=== PATIENT | female | born 1975 | race Caucasian/White ===

== ENCOUNTER 2023-07-28 10:44 | Observation (INO) | payer BC ==
[2023-07-28] MEDS ORDERED: SODIUM CHLORIDE 0.9% 500 ML 500 ML IV ONE (11:45)
--- NOTE | 2023-07-28 11:49 | ED ---
General Adult HPI - General Chief complaint: Psychiatric Symptoms Stated complaint: Mental Health Time Seen by Provider: 07/28/23 11:15 Source: patient, RN notes reviewed, old records reviewed Mode of arrival: ambulatory Limitations: no limitations - History of Present Illness Initial comments: This is a 48-year-old female who is coming to the emergency department with family who has been it to other emergency departments in this is the fourth visit to an emergency department. Patient a week ago came back from a wedding and was acting bizarre having some forgetful memory having very tangential thinking stating that her 's birthdate is the next day but his is not May. Patient is obsessed with the lenard on her right leg and thinks that that Odell coming from the bones of her body. Patient does not understand why she is here but family is concerned because stroke workup was done and was negative but she continues to be completely different than her baseline. When I asked the patient why she is here she starts talking about events that happened to her 2 years ago and refuses to get off that line of thought - Related Data Home Medications Medication Instructions Recorded Confirmed LORazepam [Ativan] 0.5 mg PO BID PRN 07/28/23 07/28/23 Sulfamethox-Tmp 800-160Mg [Bactrim 1 tab PO Q12HR 07/28/23 07/28/23 DS 800-160 mg] Allergies Allergy/AdvReac Type Severity Reaction Status Date / Time azithromycin Allergy Unknown Verified 07/28/23 14:17 Iodinated Contrast Media Allergy Unknown Verified 07/28/23 14:17 Penicillins Allergy Unknown Verified 07/28/23 14:17 Review of Systems ROS Statement: Those systems with pertinent positive or pertinent negative responses have been documented in the HPI. ROS Other: All systems not noted in ROS Statement are negative. Past Medical History Additional Past Medical History / Comment(s): multinodular goiter History of Any Multi-Drug Resistant Organisms: None Reported Past Surgical History: Cholecystectomy Additional Past Surgical History / Comment(s): D&C 2014 Past Psychological History: No Psychological Hx Reported Smoking Status: Never smoker Past Alcohol Use History: Rare Past Drug Use History: Marijuana General Exam - General Exam Comments Initial Comments: GENERAL: Patient is well-developed and well-nourished. Patient is nontoxic and well- hydrated and is in no acute distress. ENT: Neck is soft and supple. No significant lymphadenopathy is noted. Oropharynx is clear. Moist mucous membranes. Neck has full range of motion without eliciting any pain. EYES: The sclera were anicteric and conjunctiva were pink and moist. Extraocular movements were intact and pupils were equal round and reactive to light. Eyelids were unremarkable. PULMONARY: Unlabored respirations. Good breath sounds bilaterally. No audible rales rhonchi or wheezing was noted. CARDIOVASCULAR: There is a regular rate and rhythm without any murmurs gallops or rubs. ABDOMEN: Soft and nontender with normal bowel sounds. SKIN: Skin is clear with no lesions or rashes and otherwise unremarkable. NEUROLOGIC: Patient is alert and oriented x3. Cranial nerves II through XII are grossly intact. Motor and sensory are also intact. Normal speech, volume and content. Symmetrical smile. MUSCULOSKELETAL: Normal extremities with adequate strength and full range of motion. LYMPHATICS: No significant lymphadenopathy is noted PSYCHIATRIC: Patient is very tangential thinking and is not making much sense relative to why she is here. Patient is somewhat obsessed with her falling off a ladder 2 years ago as well as obsessed with a red lenard about the size of an eraser on her right leg. Limitations: no limitations Course Vital Signs 07/28/23 11:01 Temperature 98.1 F Pulse Rate 92 Respiratory 16 Rate Blood Pressure 159/99 O2 Sat by Pulse 98 Oximetry Medical Decision Making - Medical Decision Making EKG was interpreted by myself. EKG shows a sinus rhythm at 91 bpm CO interval 157 QRSs 84 QT interval 337 QTC is 385 per patient's EKG shows no ST segment patient depression. Was pt. sent in by a medical professional or institution (, PA, [employer], urgent care, hospital, or [facility]...) When possible be specific @ -No Did you speak to anyone other than the patient for history (EMS, parent, family, police, friend...)? What history was obtained from this source @ - and daughter give most of the history Did you review nursing and triage notes (agree or disagree)? Why? @ -I reviewed and agree with nursing and triage notes Were old charts reviewed (outside hosp., previous admission, EMS record, old EKG, old radiological studies, urgent care reports/EKG's, [facility] records)? Report findings @ -I reviewed prior CAT scan results in charge from [facility] and [facility] Differential Diagnosis (chest pain, altered mental status, abdominal pain women, abdominal pain men, vaginal bleeding, weakness, fever, dyspnea, syncope, headache, dizziness, GI bleed, back pain, seizure, CVA, palpatations, mental health, musculoskeletal)? @ -not applicable EKG interpreted by me (3pts min.). @ -As above X-rays interpreted by me (1pt min.). @ -None done CT interpreted by me (1pt min.). @ -CT angiogram of the head and neck show no obvious abnormality U/S interpreted by me (1pt. min.). @ -None done What testing was considered but not performed or refused? (CT, X-rays, U/S, labs)? Why? @ -None What meds were considered but not given or refused? Why? @ -None Did you discuss the management of the patient with other professionals (professionals i.e. , PA, [employer], lab, RT, psych nurse, social media strategist, job counselor, teacher, canine enforcement officer, case mgr)? Give summary @ -I spoke with Dr. Hernandez he agreed to admit the patient. Was smoking cessation discussed for >3mins.? @ -No Was critical care preformed (if so, how long)? @ -No Were there social determinants of health that impacted care today? How? (Homelessness, low income, unemployed, alcoholism, drug addiction, transportation, low edu. Level, literacy, decrease access to med. care, fpc, rehab)? @ -No Was there de-escalation of care discussed even if they declined (Discuss DNR or withdrawal of care, Hospice)? DNR status @ -No What co-morbidities impacted this encounter? (DM, HTN, Smoking, COPD, CAD, Cancer, CVA, ARF, Chemo, Hep., AIDS, mental health diagnosis, sleep apnea, m orbid obesity)? @ -None Was patient admitted / discharged? Hospital course, mention meds given and route, prescriptions, significant lab abnormalities, going to OR and other pertinent info. @ -Patient continued to be altered throughout her course though in no distress and vitals were stable Undiagnosed new problem with uncertain prognosis? @ -No Drug Therapy requiring intensive monitoring for toxicity (Heparin, Nitro, Insulin, Cardizem)? @ -No Were any procedures done? @ -No Diagnosis/symptom? @ -Altered mental status Acute, or Chronic, or Acute on Chronic? @ -Acute Uncomplicated (without systemic symptoms) or Complicated (systemic symptoms)? @ -Complicated Side effects of treatment? @ -No Exacerbation, Progression, or Severe Exacerbation? @ -No Poses a threat to life or bodily function? How? (Chest pain, [place], [place], pneumonia, PE, COPD, DKA, ARF, appy, cholecystitis, CVA, Diverticulitis, Homicidal, Suicidal, threat to staff... and all critical care pts) @ -No - Lab Data Result diagrams: 07/28/23 11:57 07/28/23 11:57 Lab Results 07/28/23 07/28/23 07/28/23 Range/Units 11:57 11:57 11:57 WBC 7.7 (3.8-10.6) k/uL RBC 4.64 (3.80-5.40) m/uL Hgb 13.1 (11.4-16.0) gm/dL Hct 41.6 (34.0-46.0) % MCV 89.8 (80.0-100.0) fL MCH 28.3 (25.0-35.0) pg MCHC 31.5 (31.0-37.0) g/dL RDW 14.1 (11.5-15.5) % Plt Count 248 (150-450) k/uL MPV 7.3 Neutrophils % 72 % Lymphocytes % 21 % Monocytes % 5 % Eosinophils % 1 % Basophils % 0 % Neutrophils # 5.5 (1.3-7.7) k/uL Lymphocytes # 1.6 (1.0-4.8) k/uL Monocytes # 0.4 (0-1.0) k/uL Eosinophils # 0.1 (0-0.7) k/uL Basophils # 0.0 (0-0.2) k/uL PT 11.2 (9.0-12.0) sec INR 1.1 (<1.2) APTT 22.5 (22.0-30.0) sec Sodium (137-145) mmol/L Potassium (3.5-5.1) mmol/L Chloride (98-107) mmol/L Carbon Dioxide (22-30) mmol/L Anion Gap mmol/L BUN (7-17) mg/dL Creatinine (0.52-1.04) mg/dL Est GFR (CKD-EPI)AfAm (>60 ml/min/1.73 sqM) Est GFR (CKD-EPI)NonAf (>60 ml/min/1.73 sqM) Glucose (74-99) mg/dL Calcium (8.4-10.2) mg/dL Total Bilirubin (0.2-1.3) mg/dL AST (14-36) U/L ALT (4-34) U/L Alkaline Phosphatase (38-126) U/L Ammonia (<30) umol/L Troponin I (0.000-0.034) ng/mL Total Protein (6.3-8.2) g/dL Albumin (3.5-5.0) g/dL Urine Color Urine Appearance (Clear) Urine pH (5.0-8.0) Ur Specific [place] (1.001-1.035) Urine Protein (Negative) Urine Glucose (UA) (Negative) Urine Ketones (Negative) Urine Blood (Negative) Urine Nitrite (Negative) Urine Bilirubin (Negative) Urine Urobilinogen (<2.0) mg/dL Ur Leukocyte Esterase (Negative) Urine RBC (0-5) /hpf Urine WBC (0-5) /hpf Ur Squamous Epith Cells (0-4) /hpf Triple Phos Crystals (None) /hpf Urine Mucus (None) /hpf Urine Opiates Screen Not Detected (NotDetected) Ur Oxycodone Screen Not Detected (NotDetected) Urine Methadone Screen Not Detected (NotDetected) Ur Propoxyphene Screen Not Detected (NotDetected) Ur Barbiturates Screen Not Detected (NotDetected) U Tricyclic Antidepress Not Detected (NotDetected) Ur Phencyclidine Scrn Not Detected (NotDetected) Ur Amphetamines Screen Not Detected (NotDetected) U Methamphetamines Scrn Not Detected (NotDetected) U Benzodiazepines Scrn Detected H (NotDetected) Urine Cocaine Screen Not Detected (NotDetected) U Marijuana (THC) Screen Detected H (NotDetected) Serum Alcohol mg/dL 07/28/23 07/28/23 07/28/23 Range/Units 11:57 11:57 11:57 WBC (3.8-10.6) k/uL RBC (3.80-5.40) m/uL Hgb (11.4-16.0) gm/dL Hct (34.0-46.0) % MCV (80.0-100.0) fL MCH (25.0-35.0) pg MCHC (31.0-37.0) g/dL RDW (11.5-15.5) % Plt Count (150-450) k/uL MPV Neutrophils % % Lymphocytes % % Monocytes % % Eosinophils % % Basophils % % Neutrophils # (1.3-7.7) k/uL Lymphocytes # (1.0-4.8) k/uL Monocytes # (0-1.0) k/uL Eosinophils # (0-0.7) k/uL Basophils # (0-0.2) k/uL PT (9.0-12.0) sec INR (<1.2) APTT (22.0-30.0) sec Sodium 139 (137-145) mmol/L Potassium 4.4 (3.5-5.1) mmol/L Chloride 106 (98-107) mmol/L Carbon Dioxide 24 (22-30) mmol/L Anion Gap 9 mmol/L BUN 10 (7-17) mg/dL Creatinine 0.73 (0.52-1.04) mg/dL Est GFR (CKD-EPI)AfAm >90 (>60 ml/min/1.73 sqM) Est GFR (CKD-EPI)NonAf >90 (>60 ml/min/1.73 sqM) Glucose 94 (74-99) mg/dL Calcium 9.4 (8.4-10.2) mg/dL Total Bilirubin 1.1 (0.2-1.3) mg/dL AST 44 H (14-36) U/L ALT 44 H (4-34) U/L Alkaline Phosphatase 61 (38-126) U/L Ammonia <9 (<30) umol/L Troponin I <0.012 (0.000-0.034) ng/mL Total Protein 8.3 H (6.3-8.2) g/dL Albumin 4.6 (3.5-5.0) g/dL Urine Color Urine Appearance (Clear) Urine pH (5.0-8.0) Ur Specific [place] (1.001-1.035) Urine Protein (Negative) Urine Glucose (UA) (Negative) Urine Ketones (Negative) Urine Blood (Negative) Urine Nitrite (Negative) Urine Bilirubin (Negative) Urine Urobilinogen (<2.0) mg/dL Ur Leukocyte Esterase (Negative) Urine RBC (0-5) /hpf Urine WBC (0-5) /hpf Ur Squamous Epith Cells (0-4) /hpf Triple Phos Crystals (None) /hpf Urine Mucus (None) /hpf Urine Opiates Screen (NotDetected) Ur Oxycodone Screen (NotDetected) Urine Methadone Screen (NotDetected) Ur Propoxyphene Screen (NotDetected) Ur Barbiturates Screen (NotDetected) U Tricyclic Antidepress (NotDetected) Ur Phencyclidine Scrn (NotDetected) Ur Amphetamines Screen (NotDetected) U Methamphetamines Scrn (NotDetected) U Benzodiazepines Scrn (NotDetected) Urine Cocaine Screen (NotDetected) U Marijuana (THC) Screen (NotDetected) Serum Alcohol <10 mg/dL 07/28/23 Range/Units 11:57 WBC (3.8-10.6) k/uL RBC (3.80-5.40) m/uL Hgb (11.4-16.0) gm/dL Hct (34.0-46.0) % MCV (80.0-100.0) fL MCH (25.0-35.0) pg MCHC (31.0-37.0) g/dL RDW (11.5-15.5) % Plt Count (150-450) k/uL MPV Neutrophils % % Lymphocytes % % Monocytes % % Eosinophils % % Basophils % % Neutrophils # (1.3-7.7) k/uL Lymphocytes # (1.0-4.8) k/uL Monocytes # (0-1.0) k/uL Eosinophils # (0-0.7) k/uL Basophils # (0-0.2) k/uL PT (9.0-12.0) sec INR (<1.2) APTT (22.0-30.0) sec Sodium (137-145) mmol/L Potassium (3.5-5.1) mmol/L Chloride (98-107) mmol/L Carbon Dioxide (22-30) mmol/L Anion Gap mmol/L BUN (7-17) mg/dL Creatinine (0.52-1.04) mg/dL Est GFR (CKD-EPI)AfAm (>60 ml/min/1.73 sqM) Est GFR (CKD-EPI)NonAf (>60 ml/min/1.73 sqM) Glucose (74-99) mg/dL Calcium (8.4-10.2) mg/dL Total Bilirubin (0.2-1.3) mg/dL AST (14-36) U/L ALT (4-34) U/L Alkaline Phosphatase (38-126) U/L Ammonia (<30) umol/L Troponin I (0.000-0.034) ng/mL Total Protein (6.3-8.2) g/dL Albumin (3.5-5.0) g/dL Urine Color Yellow Urine Appearance Cloudy H (Clear) Urine pH 5.5 (5.0-8.0) Ur Specific [place] 1.035 (1.001-1.035) Urine Protein 1+ H (Negative) Urine Glucose (UA) Negative (Negative) Urine Ketones 3+ H (Negative) Urine Blood Trace H (Negative) Urine Nitrite Negative (Negative) Urine Bilirubin 1+ H (Negative) Urine Urobilinogen <2.0 (<2.0) mg/dL Ur Leukocyte Esterase Small H (Negative) Urine RBC 48 H (0-5) /hpf Urine WBC 7 H (0-5) /hpf Ur Squamous Epith Cells 14 H (0-4) /hpf Triple Phos Crystals Many H (None) /hpf Urine Mucus Occasional H (None) /hpf Urine Opiates Screen (NotDetected) Ur Oxycodone Screen (NotDetected) Urine Methadone Screen (NotDetected) Ur Propoxyphene Screen (NotDetected) Ur Barbiturates Screen (NotDetected) U Tricyclic Antidepress (NotDetected) Ur Phencyclidine Scrn (NotDetected) Ur Amphetamines Screen (NotDetected) U Methamphetamines Scrn (NotDetected) U Benzodiazepines Scrn (NotDetected) Urine Cocaine Screen (NotDetected) U Marijuana (THC) Screen (NotDetected) Serum Alcohol mg/dL Disposition Clinical Impression: Altered mental status Disposition: ADMITTED IP TO THIS HOSP Referrals: Jose Hernandez DO [Primary Care Provider] - 1-2 days Time of Disposition: 15:53
[2023-07-28 12:32] LABS: Basophils % (A) 0 %; Eosinophils # (A) 0.1 k/uL (0-0.7); Eosinophils % (A) 1 %; HCT 41.6 % (34.0-46.0); HGB 13.1 gm/dL (11.4-16.0); Lymphocytes # (A) 1.6 k/uL (1.0-4.8); Lymphocytes % (A) 21 %; MCH 28.3 pg (25.0-35.0); MCHC 31.5 g/dL (31.0-37.0); MCV 89.8 fL (80.0-100.0); Mean Platelet Volume 7.3; Monocytes # (A) 0.4 k/uL (0-1.0); Monocytes % (A) 5 %; Neutrophils # (A) 5.5 k/uL (1.3-7.7); Neutrophils % (A) 72 %; Platelet Count 248 k/uL (150-450); RBC 4.64 m/uL (3.80-5.40); RDW 14.1 % (11.5-15.5); WBC 7.7 k/uL (3.8-10.6)
[2023-07-28 12:42] LABS: ALT 44 U/L (4-34); AST 44 U/L (14-36); African American GFR (CKD) >90 (>60 ml/min/1.73 sqM); Albumin 4.6 g/dL (3.5-5.0); Alcohol <10 mg/dL; Alkaline Phosphatase 61 U/L (38-126); Anion Gap 9 mmol/L; Blood Urea Nitrogen 10 mg/dL (7-17); Calcium 9.4 mg/dL (8.4-10.2); Carbon Dioxide 24 mmol/L (22-30); Chloride 106 mmol/L (98-107); Glucose 94 mg/dL (74-99); Non-African American GFR(CKD) >90 (>60 ml/min/1.73 sqM); Potassium 4.4 mmol/L (3.5-5.1); Sodium 139 mmol/L (137-145); Total Bilirubin 1.1 mg/dL (0.2-1.3); Total Protein 8.3 g/dL (6.3-8.2)
[2023-07-28 12:58] LABS: INR 1.1 (<1.2); Partial Thromboplastin Time 22.5 sec (22.0-30.0); Prothrombin Time 11.2 sec (9.0-12.0)
[2023-07-28] MEDS ORDERED: methylPREDNISolone SOD SUCCI 125 MG/2 ML VIAL IV STA (13:53)
[2023-07-28] MEDS ORDERED: diphenhydrAMINE 50 MG/ML 1 ML VIAL IVP STA (13:53)
[2023-07-28] MEDS ORDERED: FAMOTIDINE 20 MG/2 ML VIAL IV STA (13:53)
[2023-07-28 14:10] LABS: Appearance,Urine Cloudy (Clear); Bilirubin,Urine 1+ (Negative); Blood,Urine Trace (Negative); Color,Urine Yellow; Glucose,Urine (UA) Negative (Negative); Ketones,Urine 3+ (Negative); Leukocyte Esterase,Urine Small (Negative); Mucus,Urine Occasional /hpf; Nitrite,Urine Negative (Negative); PH, Urine 5.5 (5.0-8.0); Protein,Urine 1+ (Negative); RBC,Urine 48 /hpf (0-5); Specific Gravity,Urine 1.035 (1.001-1.035); Squamous Epithelial Cell,Urine 14 /hpf (0-4); Triple Phosphate Crystal,Urine Many /hpf; Urobilinogen,Urine <2.0 mg/dL (<2.0); WBC,Urine 7 /hpf (0-5)
[2023-07-28 14:12] LABS: Amphetamine Screen,Urine Not Detected (NotDetected); Barbiturate Screen,Urine Not Detected (NotDetected); Benzodiazepines Screen,Urine Detected (NotDetected); Cocaine Screen,Urine Not Detected (NotDetected); Methadone Screen, Urine Not Detected (NotDetected); Opiate Screen,Urine Not Detected (NotDetected); Oxycodone Screen, Urine Not Detected (NotDetected); Phencyclidine Screen,Urine Not Detected (NotDetected); Tricyclic Antidepressant,Urine Not Detected (NotDetected); Urn Cannabinoid Scrn Detected (NotDetected)
--- NOTE | 2023-07-28 15:22 | CT ---
EXAMINATION TYPE: CT angio head neck CT DLP: 1281.6 mGycm, Automated exposure control for dose reduction was used. DATE OF EXAM: 07/28/2023 2:55 PM COMPARISON: None. CLINICAL INDICATION:Female, 48 years old with history of Altered mental status; PHH, AMS TECHNIQUE: Axially acquired helical CT angiogram of the head and neck was obtained with contrast util izing 65 cc of Isovue-370 administered intravenously. Axial images are supplemented with 3D reconstru ctions which were post-processed at an independent workstation. NASCET criteria used. FINDINGS: Motion degraded examination. CTA HEAD: No evidence of acute intracranial hemorrhage, mass effect, or midline shift. The ventricles, sulci, a nd cisterns are unremarkable. The visualized portions of the internal carotid arteries, middle cerebral arteries, anterior cerebral arteries, and posterior cerebral arteries are patent. origin of the left CLINICAL MEDICAL ASSISTANT. The basilar and vertebral arteries are patent. CTA NECK: Right Carotid System: The common carotid artery and external carotid artery are grossly patent. The carotid bifurcation dem onstrates no gross evidence of hemodynamically significant stenosis. The remaining portions of the in ternal carotid artery demonstrate normal size without significant narrowing. Left Carotid System: The common carotid artery and external carotid artery are grossly patent. The carotid bifurcation dem onstrates no gross evidence of hemodynamically significant stenosis. The remaining portions of the in ternal carotid artery demonstrate normal size without significant narrowing. There is a bovine aortic arch. The origins of the great vessels are patent. The distal intracranial v ertebral arteries are patent and codominant. The remaining proximal portions are poorly visualized du e to motion. IMPRESSION: 1. Poor visualization of the vertebral arteries and common carotid and internal carotid artery second arsalan to motion artifact. No gross evidence for significant stenosis within these limitations. 2. No evidence of high-grade stenosis or intracranial aneurysm.
[2023-07-28] MEDS ORDERED: SODIUM CHLORIDE 0.9% 1,000 ML IV ONE (15:53)
--- NOTE | 2023-07-29 12:12 | P.CNNES ---
History of Present Illness Consult date: 07/29/23 Requesting physician: Evan Jasmine Reason for Consult: ams History of Present Illness: This is a 48-year-old woman who presented emergency departments multiple times because of uncontrollable tremors. According to patient she has chronic right hand tremor and she was able to control but recently in the last 2 weeks she is having worsening of her tremor on the right upper extremity that is getting worse and she's not able to control it and she feels the tremor is moving into right lower extremity and sometimes over left side. The episode lasted less than 1 minute post-she's having recurrent episodes. She was told that she days is off but she states that she did does not lose consciousness and she remembers and sequential what happens during these episodes. She denies of any tongue bite, urinary or bowel incontinence. Denies any history of seizure. She states that the she is under a lot of anxiety and she feels she is not being heard from people in general. She denies of any history of seizures. She went to different hospital in the last two weeks. Twice to [facility] and once to [facility] and could not tell me work-up she had. She denies seeing a psychiatrist. Some of the workup during his hospital visit consisted of: CBC with differential is unremarkable AST ALT is 44. Ammonia is less than 9. Otherwise rest of the chem strip panel is unremarkable next Urinalysis seems questionable for underlying urinary tract infection by feel less likely Urine tox screen is positive for benzos as well as marijuana. Otherwise rest is not detected. CT angiography of the head and neck was reported as poor visualization of the vertebral and common carotid and internal carotid the artery secondary due to motion artifact. No gross evidence for significant stenosis within these limitation. No evidence of high-grade stenosis or intracranial aneurysm. Review of Systems 10 point review of system is reviewed and positive and negative as per HPI. Past Medical History Additional Past Medical History / Comment(s): multinodular goiter History of Any Multi-Drug Resistant Organisms: None Reported Past Surgical History: Cholecystectomy Additional Past Surgical History / Comment(s): D&C 2014 Past Psychological History: No Psychological Hx Reported Smoking Status: Never smoker Past Alcohol Use History: Rare Past Drug Use History: Marijuana Medications and Allergies Home Medications Medication Instructions Recorded Confirmed Type LORazepam [Ativan] 0.5 mg PO BID PRN 07/28/23 07/28/23 History Sulfamethox-Tmp 800-160Mg [Bactrim 1 tab PO Q12HR 07/28/23 07/28/23 History DS 800-160 mg] Allergies Allergy/AdvReac Type Severity Reaction Status Date / Time azithromycin Allergy Unknown Verified 07/28/23 14:17 Iodinated Contrast Media Allergy Unknown Verified 07/28/23 14:17 Penicillins Allergy Unknown Verified 07/28/23 14:17 Physical Examination - Vital Signs Vital Signs: Vital Signs Temp Pulse Resp BP Pulse Ox 07/29/23 06:00 80 18 135/78 98 07/28/23 19:05 97.9 F 89 17 95/68 97 07/28/23 11:01 98.1 F 92 16 159/99 98 GENERAL: The patient is lying in bed and is not in acute distress. NEUROLOGICAL: Higher mental function: The patient is awake, alert, oriented to self, place and time. Patient is following commands. No aphasia and no neglect. Cranial nerves: The pupils are round, equal and reactive to light and accommo dation. Visual castaneda are full to confrontation throughout. Extraocular movement is intact no nystagmus is noted. Facial sensation is normal to touch throughout. The facial strength is normal throughout. Hearing is normal bilaterally to hand rub. Tongue is midline and moved [id number] without any difficulty. No dysarthria is noted. Shoulder shrug is normal bilaterally. Motor: The strength is 5 over 5 throughout. Normal tone and bulk. Cerebellum: Normal finger to nose heel to conteh bilaterally. Sensation: Sensation is normal to touch throughout. Reflexes (right/left): 2+ throughout. Plantars are downgoing bilaterally. Results - Laboratory Findings CBC and BMP: 07/28/23 11:57 07/28/23 11:57 Abnormal Lab Findings: Abnormal Labs 07/28/23 07/28/23 07/28/23 11:57 11:57 11:57 AST 44 H ALT 44 H Total Protein 8.3 H Urine Appearance Cloudy H Urine Protein 1+ H Urine Ketones 3+ H Urine Blood Trace H Urine Bilirubin 1+ H Ur Leukocyte Esterase Small H Urine RBC 48 H Urine WBC 7 H Ur Squamous Epith Cells 14 H Triple Phos Crystals Many H Urine Mucus Occasional H U Benzodiazepines Scrn Detected H U Marijuana (THC) Screen Detected H Assessment and Plan Assessment: This is a 48-year-old woman who presents to our ED because of uncontrollable tr emor in the last two weeks. She has been to different hospitals (twice [facility] and once to [facility]). She is feeling more anxious than baseline and feels she is not being herd by people. Her uncontrollable tremors are likely due to anxiety. Denies LOC, urinary, bowel or tongue bite. History of hyperthyroidism. Plan: Routine EEG: Preliminary report Is normal. Ordered TSH. Psychiatry team is consulted. Consider MRI Brain as outpatient and follow-up with neurologist as outpatient within 2-3 weeks. We'll defer the rest of the medical management to primary team The plan is discussed with patient. Thank you for the consultation. Time with Patient: Greater than 30
[2023-07-29] MEDS ORDERED: QUEtiapine 25 MG TAB PO PRN (13:45)
[2023-07-29] MEDS ORDERED: QUEtiapine 25 MG TAB PO STA (13:45)
--- NOTE | 2023-07-29 13:53 | P.CN ---
Psychiatric Consult - . Consult date: 07/29/23 Consult:: 07/29/23 13:47 IDENTIFYING DATA: This patient is a 48-year-old female who is currently , has 2 kids she lives in a house, she works as a administrative professional. REASON FOR REFERRAL: Psychiatry was consulted for altered mental status HISTORY OF PRESENT ILLNESS: The patient presented to the hospital on 07/28, this has been her fourth ER visit and past week or so. Patient apparently has been acting bizarre, forgetful tangential and obsessed with a low lenard on her leg according to ER report. Patient apparently was looking for a stroke workup and apparently was negative. Patient apparently has not been at her baseline according to her . Her UDS was positive for benzodiazepines and THC. Patient has already been seen by neurology who is yet to read the EEG, patient was controlling of complaining of uncontrolled tremors. Recommended to do an MRI as an outpatient as the computed tomography scan is currently negative. Patient's was agreeable to speak to selling underwriter outside the room and stated that patient's baseline is usually fairly anxious however at this time she has been believing that she may be dying, has been nonsensical, thinks that other people are dying as well, acting paranoid after she came back from a wedding over week ago. Patient apparently has been having really poor sleep at home. Patient was seen in agreeable to speak to selling underwriter. She was somewhat suspicious and mildly irritable, endorsing anxiety and mild depression however states that these of been mildly improving since being in the hospital. She was tangential at times, rambling. She was somatically focused mainly about her tremor that she states is chronic. She claims that her sleep has been fairly poor, has been having racing thoughts at nighttime. At this time patient denies any suicidal or homical ideations, intent or plan. Patient denies any auditory, visual hallucinations. Patients admits to using marijuana at unable occasionally however states that the last time she used it was a few days ago. She denies any other recreational drug use. PAST PSYCHIATRIC HISTORY: Patient has no apparent significant psychiatric history. Patient denies being on any psychiatric medications. Patient denies any previous psychiatric hospitalizations. Patient denies any psychiatric outpatient follow-up. Patient denies any history of suicide attempts in the past. PAST MEDICAL HISTORY: As per ER note. ALLERGIES: as per EMR. CHEMICAL DEPENDENCY HISTORY: as per HPI. FAMILY PSYCHIATRIC/SUBSTANCE USE HISTORY: At her mother's father, committed suicide SOCIAL HISTORY: Patient was born and raised in [facility]. She states that she completed high school and did her bachelor's degree. States that she is has 2 kids, they live in a house. She works as a administrative professional. She denies any legal history at this time. MENTAL STATUS EXAM: General Appearance: Patient appears to be overweight, espana hair, stated age is alert, suspicious, and mildly argumentative. Patient appears to have fair hygiene and grooming wearing hospital gown with fair eye contact. Behavior: Patient is calmly lying in bed without any agitated behavior. His patience at times. Speech: Patient's speech is fluent and nonpressured. Mood/Affect: Patient reports their mood is "was depressed and anxious", affect is congruent Suicidality/Homicidality: Patient denies having any suicidal or homicidal ideation intent or plan. Perceptions: Patient denies any visual hallucinations and denies any auditory hallucinations Though content/process: Patient was endorsing mild paranoia. Rambling at times, tangential. Memory and concentration: AOX3, grossly intact for the purposes of this session. Can spell "WORLD" backwards Judgment and insight: poor IMPRESSIONS: Psychosis unspecified, rule out cannabis-induced psychosis Cannabis use disorder PLAN: -At this time patient DOES NOT meet criteria for inpatient psychiatric admission. -Would recommend the following medication changes/additions: Patient is agreeable to try Seroquel, 25 mg once now, 25 mg daily at bedtime scheduled, 25 mg daily when necessary for psychosis/insomnia. -Wrapper Operator spoke with patient about substance abuse and the harmful effects on medical and mental health, patient verbally understood and agreed. -Communicated plan to patient's nurse -Will continue to follow along -Please contact with any questions.
[2023-07-29 18:01] LABS: Appearance,Urine Cloudy (Clear); Bacteria,Urine Rare /hpf; Bilirubin,Urine Negative (Negative); Blood,Urine Moderate (Negative); Calcium Oxalate Crystals,Urine Moderate /hpf; Color,Urine Yellow; Glucose,Urine (UA) Negative (Negative); Hyaline Casts,Urine 3 /lpf (0-2); Ketones,Urine 1+ (Negative); Leukocyte Esterase,Urine Trace (Negative); Mucus,Urine Many /hpf; Nitrite,Urine Negative (Negative); Protein,Urine 1+ (Negative); RBC,Urine 1 /hpf (0-5); Specific Gravity,Urine 1.038 (1.001-1.035); Squamous Epithelial Cell,Urine 10 /hpf (0-4); Urobilinogen,Urine <2.0 mg/dL (<2.0); WBC,Urine 12 /hpf (0-5)
[2023-07-29] MEDS ORDERED: QUEtiapine 25 MG TAB PO SCH (21:00)
--- NOTE | 2023-07-29 21:21 | EEG ---
ELECTROENCEPHALOGRAM REPORT CLINICAL HISTORY: This is a 48-year-old woman with a tremor that is worsening in the last few weeks. The video EEG is obtained to evaluate for seizure and epileptiform activity. RELEVANT MEDICATIONS: The patient is not on any antiepileptic drugs. EEG TYPE: A routine 21-channel EEG is performed using the 10/20 electrode placement system. DESCRIPTION: Wakefulness is only obtained. During awake state, the posterior-dominant rhythm consists of [id number] voltage of 9 to 10 Hz activity that is well modulated and well sustained. There is no physiological sleep architecture. There is no focal slowing. INTERICTAL AND ICTAL: None. ACTIVATION PROCEDURE: Photic stimulation did not evoke a posterior driving response. There is no abnormality during the photic stimulation. Hyperventilation is not performed. CLINICAL INTERPRETATION: This is a normal routine EEG. There is no focal slowing, epileptiform discharge, or seizure on the EEG. A normal routine EEG does not rule out underlying epilepsy. Clinical correlation is recommended. TIFFANIE / JHONNY: [id number] / MTDYong
--- NOTE | 2023-07-30 13:45 | P.PN ---
Subjective Progress Note Date: 07/30/23 Patient is seen at bedside and she feels she is doing better. Denies of any new neurological issues. Objective - Vital Signs Vital signs: Vital Signs Temp 97.7 F 07/30/23 07:21 Pulse 96 07/30/23 07:21 Resp 18 07/30/23 07:21 BP 156/86 07/30/23 07:21 Pulse Ox 95 07/30/23 07:21 FiO2 Intake & Output 07/29/23 07/30/23 07/30/23 18:59 06:59 18:59 Intake Total 360 Balance 360 Intake: Oral 360 Other: # Voids 2 - Exam GENERAL: The patient is lying in bed and is not in acute distress. NEUROLOGICAL: Higher mental function: The patient is awake, alert, oriented to self, place and time. Patient is following commands. No aphasia and no neglect. Cranial nerves: The pupils are round, equal and reactive to light and accommodation. Visual castaneda are full to confrontation throughout. Extraocular movement is intact no nystagmus is noted. Facial sensation is normal to touch throughout. The facial strength is normal throughout. Hearing is normal bilaterally to hand rub. Tongue is midline and moved [id number] without any difficulty. No dysarthria is noted. Shoulder shrug is normal bilaterally. Motor: The strength is 5 over 5 throughout. Normal tone and bulk. Cerebellum: Normal finger to nose heel to conteh bilaterally. Sensation: Sensation is normal to touch throughout. Reflexes (right/left): 2+ throughout. Plantars are downgoing bilaterally. Some of the workup during his hospital visit consisted of: CBC with differential is unremarkable AST ALT is 44. TSH is 0.395 Folate is 15.90 Vitamin B12 699 Ammonia is less than 9 Urinalysis seems questionable for underlying urinary tract infection by feel l ess likely Urine tox screen is positive for benzos as well as marijuana. Otherwise rest is not detected. CT angiography of the head and neck was reported as poor visualization of the vertebral and common carotid and internal carotid the artery secondary due to motion artifact. No gross evidence for significant stenosis within these limitation. No evidence of high-grade stenosis or intracranial aneurysm. Routine EEG is normal. There is no focal slowing, epileptiform discharges or seizure on the EEG. - Labs CBC & Chem 7: 07/28/23 11:57 07/28/23 11:57 Labs: Abnormal Lab Results - Last 24 Hours (Table) 07/29/23 Range/Units 16:45 Urine Appearance Cloudy H (Clear) Ur Specific [place] 1.038 H (1.001-1.035) Urine Protein 1+ H (Negative) Urine Ketones 1+ H (Negative) Urine Blood Moderate H (Negative) Ur Leukocyte Esterase Trace H (Negative) Urine WBC 12 H (0-5) /hpf Ur Squamous Epith Cells 10 H (0-4) /hpf Calcium Oxalate Crystal Moderate H (None) /hpf Urine Bacteria Rare H (None) /hpf Hyaline Casts 3 H (0-2) /lpf Urine Mucus Many H (None) /hpf Assessment and Plan Assessment: This is a 48-year-old woman who presents to our ED because of uncontrollable tremor in the last two weeks. She has been to different hospitals (twice [facility] and once to [facility]). She is feeling more anxious than baseline and feels she is not being herd by people. Her uncontrollable tremors are likely due to anxiety vs other psychiatric condition Denies LOC, urinary, bowel or tongue bite. History of hyperthyroidism. Plan: Routine EEG: Is normal. TSH is normal. Psychiatry team is consulted. Consider MRI Brain as outpatient and follow-up with neurologist as outpatient within 2-3 weeks. We'll defer the rest of the medical management to primary team The plan is discussed with patient. There is no further neurological work-up. Will sign off. Please reconsult if needed. Time with Patient: Less than 30
[2023-07-30] MEDS ORDERED: OLANZapine 5 MG TAB PO PRN (14:17)
[2023-07-30] MEDS ORDERED: OLANZapine 10 MG VIAL IM PRN (14:17)
--- NOTE | 2023-07-30 14:23 | P.PN ---
Progress Note - Text Progress Note Date: 07/30/23 Interval history: Patient was seen today as a psychiatric follow up today. patient was started on seroquel yesterday and took two doses. The patient's family was seen in the room and agreeable to filing writer outside. They state that patient is "worse today" and states that she is fairly labile, crying at times, rambling and nonsensical. The also state that she has been writing on the board with various different things and was not able to explain them. The state that she is acting more bizarre today. Patient was seen sitting on the chair beside her bed and agreeable to speak to filing writer. She appeared to be somewhat tearful and rambling and somewhat intrusive. She was bizarre and inappropriate at times and some of her responses. She attempted to talk about whether she was written writing on the board and was illogical and spoke about her symptoms and how it ties into it and also her pain scale. When filing writer attempted to talk about her mood she began crying and believed that she was being interrupted. At this time she is denying any auditory or visual hallucinations, denying any suicidal or homicidal ideations intent or plan. Things that she slept fairly last March. Mental status examination: General Appearance: Patient appears to be overweight, espana hair, stated age is alert, suspicious, and mildly argumentative. Bizarre. Patient appears to have fair hygiene and grooming wearing hospital gown with fair eye contact. Behavior: Patient is calmly lying in bed without any agitated behavior. Bizarre. Difficult to redirect Speech: Patient's speech is fluent and nonpressured. Rambling Mood/Affect: Patient reports their mood is "up and down", affect is congruent and inappropriate Suicidality/Homicidality: Patient denies having any suicidal or homicidal ideation intent or plan. Perceptions: Patient denies any visual hallucinations and denies any auditory hallucinations Though content/process: Patient was endorsing mild paranoia. Rambling at times, tangential. Bizarre content Memory and concentration: AOX3, grossly intact for the purposes of this session Judgment and insight: Poor IMPRESSIONS: Psychosis unspecified, rule out cannabis-induced psychosis Cannabis use disorder PLAN: -At this time patient DOES NOT meet criteria for inpatient psychiatric a dmission. will consider transfer to psych if patient continues to not improve. -Would recommend the following medication changes/additions: Discontinue Seroquel, replace with Risperdal 1 mg twice a day for psychosis/mood stabilization, Zyprexa 3 times a day when necessary for agitation, trazodone 50 mg daily at bedtime when necessary for insomnia -questionable UA, unsure if this is a UTI? -Chief Compressor Station Engineer spoke with patient about substance abuse and the harmful effects on medical and mental health, patient verbally understood and agreed. -Communicated plan to patient's nurse and to family members -at this time psychiatry will continue to follow along. -Please contact with any questions.
[2023-07-30] MEDS: risperiDONE 1 MG TAB PO SCH ×2 (15:36→20:44)
--- NOTE | 2023-07-30 19:21 | P.HPIM ---
History of Present Illness H&P Date: 07/29/23 this a pleasant 48-year-old white female who was admitted through the ER. Patient's chief complaint of confusion and delirium and confusion altered mental status. Patient was apparently on a trip to [place] and on her way back to [place] she develops some TIA symptoms of numbness and weakness in extremity she was seen at the hospital worked up for acute TIA versus CVA and was discharged when CVA was cleared. They did find a urinary urinary tract infection which she was placed on Bactrim DS 4. In the next few days she developed confusion and lethargy agitation and went back to the emergency room this time at [facility] they did a workup again including computed tomography scan EEG neurology evaluation all essentially unremarkable and was discharged. She returns to [facility] with symptoms of delirium and confusion tremors and altered mental status. Of note the only thing positive on 2 of patient reports was cannabis and benzodiazepine.a admits to take and recreation cannabis patient denies any upper respiratory, nausea, vomiting, dysuria or fever. Review of Systems GENERAL: Patient denies fever. Denies chills. EYES: Denies blurred vision. Denies vision changes. Denies eye pain. EARS, NOSE, MOUTH, & THROAT: Denies headache. Denies sore throat. Denies ear pain. RESPIRATORY: Denies cough. Denies shortness of breath. Denies sputum production. Denies hemoptysis. CARDIOVASCULAR: Denies chest pain or pressure. Denies palpitations. Denies arrhythmias. GASTROINTESTINAL: Denies abdominal pain. Denies diarrhea. Denies constipation. Denies nausea. Denies vomiting. Denies heartburn. Denies blood in the stool. GENITOURINARY: Denies urinary frequency. Denies burning. Denies dysuria. Denies cloudy urine. Denies blood in the urine. MUSCULOSKELETAL: Denies myalgias. Denies joint swelling. Denies decreased range of motion beyond patients baseline. INTEGUMENTARY: Denies pruitis. Denies rash. PSYCHIATRIC: Denies suicidal or homicial ideations. ENDOCRINE: Denies weight change. Denies polydipsia. Denies polyuria. HEMATOLOGIC: Denies bleeding disorders. Past Medical History Additional Past Medical History / Comment(s): multinodular goiter History of Any Multi-Drug Resistant Organisms: None Reported Past Surgical History: Cholecystectomy Additional Past Surgical History / Comment(s): D&C 2014 Past Psychological History: No Psychological Hx Reported Smoking Status: Never smoker Past Alcohol Use History: Rare Past Drug Use History: Marijuana Medications and Allergies Home Medications Medication Instructions Recorded Confirmed Type LORazepam [Ativan] 0.5 mg PO BID PRN 07/28/23 07/28/23 History Sulfamethox-Tmp 800-160Mg [Bactrim 1 tab PO Q12HR 07/28/23 07/28/23 History DS 800-160 mg] Allergies Allergy/AdvReac Type Severity Reaction Status Date / Time azithromycin Allergy Unknown Verified 07/28/23 14:17 Iodinated Contrast Media Allergy Unknown Verified 07/28/23 14:17 Penicillins Allergy Unknown Verified 07/28/23 14:17 Physical Exam Osteopathic Statement: *. No significant issues noted on an osteopathic structural exam other than those noted in the History and Physical/Consult. Vitals: Vital Signs Temp Pulse Resp BP Pulse Ox 07/29/23 06:00 80 18 135/78 98 07/28/23 19:05 97.9 F 89 17 95/68 97 GENERAL: This is a 48-year-old in no mild distress at the time of examination. Pleasant and cooperative. HEENT: Head is atraumatic, normocephalic. Pupils are equal, round, and reactive to light. Sclerae anicteric. Conjunctivae are clear. Mucus membranes of the mouth are moist. Neck is supple. RESPIRATORY: Clear to auscultation. No wheezes, rales, or rhonchi. No use of accessory muscles. No chest wall tenderness is noted on palpation or with deep breathing. CARDIOVASCULAR: Regular rate and rhythm. S1 and S2 noted. No systolic or diastolic murmur auscultated. No JVD noted. No S3 or S4 noted. GASTROINTESTINAL: No distention noted. Abdomen soft and round. Normal active bowel sounds auscultated x 4 quadrants. No pain or tenderness noted upon palpation. INTEGUMENTARY: No cyanosis. No jaundice. No rashes noted. No cellulitis noted. EXTREMITIES: 2+ peripheral pulses. No evidence of peripheral edema. No calf tenderness noted. NEUROLOGIC: Cranial nerves II-XII intact. PSYCHIATRIC: Awake, alert, and oriented X 3. currently had episodes of confusion and delirium earlier reported Results CBC & Chem 7: 07/28/23 11:57 07/28/23 11:57 Labs: Abnormal Lab Results - Last 24 Hours (Table) 07/28/23 07/28/23 Range/Units 11:57 11:57 Urine Appearance Cloudy H (Clear) Urine Protein 1+ H (Negative) Urine Ketones 3+ H (Negative) Urine Blood Trace H (Negative) Urine Bilirubin 1+ H (Negative) Ur Leukocyte Esterase Small H (Negative) Urine RBC 48 H (0-5) /hpf Urine WBC 7 H (0-5) /hpf Ur Squamous Epith Cells 14 H (0-4) /hpf Triple Phos Crystals Many H (None) /hpf Urine Mucus Occasional H (None) /hpf U Benzodiazepines Scrn Detected H (NotDetected) U Marijuana (THC) Screen Detected H (NotDetected) Assessment and Plan (1) Acute psychosis Current Visit: Yes Status: Acute Code(s): F23 - BRIEF PSYCHOTIC DISORDER SNOMED Code(s): 92704401878081 (2) Tremors of nervous system Current Visit: Yes Status: Acute Code(s): R25.1 - TREMOR, UNSPECIFIED SNOMED Code(s): 88244392 (3) Altered mental status Current Visit: Yes Status: Acute Code(s): R41.82 - ALTERED MENTAL STATUS, UNSPECIFIED SNOMED Code(s): 698549723 Plan: patient will be admitted because of multiple ER visits and the current state of delirium and confusion metabolic has been ruled out she underwent a spiral CT angiogram of the brain which showed no significant abnormalities. Blood work reviewed from 3 different ERs was essentially unremarkable. She is been no source of infection. We will ask neurology and psychiatry to see patient for her acute mental status changes Time with Patient: Greater than 30
--- NOTE | 2023-07-30 19:25 | P.PN ---
Subjective Progress Note Date: 07/30/23 patient feeling a little bit better today however she's had some peculiar behaviors and some pressured speech and some periods of confusion. She did take Seroquel 2 doses and states she slept better but she is still not herself she does on occasion answer questions appropriately however for the most part she is alert and orientated 3. Neurology is cleared her of any neurological disorders psychiatry is still adjusting her medications and states that she's not quite a inpatient psychiatric candidate unless her symptoms worsen she still denies any cough congestion shortness of breath fever dysuria or incontinence patient was examined today with and daughter at the bedside. Objective - Vital Signs Vital signs: Vital Signs Temp 97.7 F 07/30/23 14:53 Pulse 52 L 07/30/23 14:53 Resp 18 07/30/23 14:53 BP 157/100 07/30/23 14:53 Pulse Ox 96 07/30/23 14:53 FiO2 Intake & Output 07/29/23 07/30/23 07/30/23 18:59 06:59 18:59 Intake Total 360 Balance 360 Intake: Oral 360 Other: # Voids 2 - Exam GENERAL: This is a 48-year-old in no mild distress at the time of examination. Pleasant and cooperative. HEENT: Head is atraumatic, normocephalic. Pupils are equal, round, and reactive to light. Sclerae anicteric. Conjunctivae are clear. Mucus membranes of the mouth are moist. Neck is supple. RESPIRATORY: Clear to auscultation. No wheezes, rales, or rhonchi. No use of accessory muscles. No chest wall tenderness is noted on palpation or with deep breathing. CARDIOVASCULAR: Regular rate and rhythm. S1 and S2 noted. No systolic or diastolic murmur auscultated. No JVD noted. No S3 or S4 noted. GASTROINTESTINAL: No distention noted. Abdomen soft and round. Normal active bowel sounds auscultated x 4 quadrants. No pain or tenderness noted upon palpation. INTEGUMENTARY: No cyanosis. No jaundice. No rashes noted. No cellulitis noted. EXTREMITIES: 2+ peripheral pulses. No evidence of peripheral edema. No calf tenderness noted. NEUROLOGIC: Cranial nerves II-XII intact. PSYCHIATRIC: Awake, alert, and oriented X 3. currently had episodes of confusion and delirium earlier reported - Labs CBC & Chem 7: 07/28/23 11:57 07/28/23 11:57 Labs: Abnormal Lab Results - Last 24 Hours (Table) 07/29/23 Range/Units 16:45 Urine Appearance Cloudy H (Clear) Ur Specific [place] 1.038 H (1.001-1.035) Urine Protein 1+ H (Negative) Urine Ketones 1+ H (Negative) Urine Blood Moderate H (Negative) Ur Leukocyte Esterase Trace H (Negative) Urine WBC 12 H (0-5) /hpf Ur Squamous Epith Cells 10 H (0-4) /hpf Calcium Oxalate Crystal Moderate H (None) /hpf Urine Bacteria Rare H (None) /hpf Hyaline Casts 3 H (0-2) /lpf Urine Mucus Many H (None) /hpf Assessment and Plan (1) 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 Current Visit: Yes Status: Acute Code(s): F12.151 - CANNABIS ABUSE WITH PSYCHOTIC DISORDER WITH HALLUCINATIONS SNOMED Code(s): 37599125 (2) Acute psychosis Current Visit: Yes Status: Acute Code(s): F23 - BRIEF PSYCHOTIC DISORDER SNOMED Code(s): 01297645926977 (3) Altered mental status Current Visit: Yes Status: Acute Code(s): R41.82 - ALTERED MENTAL STATUS, UNSPECIFIED SNOMED Code(s): 857951242 (4) Tremors of nervous system Current Visit: Yes Status: Acute Code(s): R25.1 - TREMOR, UNSPECIFIED SNOMED Code(s): 94077701 Plan: patient has been cleared by neurology will continue to work with psychiatry and adjust her medications follow her overnight if patient is stable. Discharge t omorrow in the next 24 hours Time with Patient: Greater than 30
[2023-07-31] MEDS: risperiDONE 1 MG TAB PO SCH ×2 (14:24→14:30)
--- NOTE | 2023-07-31 14:25 | P.PN ---
Progress Note - Text Progress Note Date: 07/31/23 Interval history: Patient was seen today as a psychiatric follow up today. patients nurse states that patient has been fluctuating in terms of her mood and irritability. Patient took the medication Risperdal yesterday however refused it today, she packed up her belongings and is ready for discharge today. She was seen in the room with her son to be. She was agreeable to speak to press writer today. She was labile at times, demanding impulsive and fairly irritable. Patient continues to endorse delusions and paranoia. Poor decision making skills and poor insight and judgment. She claims that she has not been sleeping well at night time. Continues to make negative comments about the medications and does not believe that she needs them. Fire Extinguisher Repairer spoke with patient's son and who are also concerned about patient's irritability agitation and paranoia. Son was able to fill out a petition with his concerns today again. Fire Extinguisher Repairer met with patient again with his family at her side and explained the situation of her being involuntary and a psychiatric hold and encourage medication compliance, patient began being very upset and demanding discharge. At this time she is denying any auditory or visual hallucinations, denying any suicidal or homicidal ideations intent or plan. Things that she slept fairly last March. Mental status examination: General Appearance: Patient appears to be overweight, espana hair, stated age is alert, suspicious, and mildly argumentative. Bizarre. Patient appears to have fair hygiene and grooming wearing hospital gown with fair eye contact. Behavior: Patient is demanding, paranoid and impulsive. Speech: Patient's speech is fluent and nonpressured. Rambling. demanding, aggressive at times Mood/Affect: Patient reports their mood is "up and down", affect is congruent and inappropriate, labile. Suicidality/Homicidality: Patient denies having any suicidal or homicidal ideation intent or plan. Perceptions: Patient denies any visual hallucinations and denies any auditory hallucinations Though content/process: Patient was endorsing paranoia. Rambling at times, tangential. demanding. Memory and concentration: AOX3, grossly intact for the purposes of this session Judgment and insight: Poor/impulsive IMPRESSIONS: Psychosis unspecified, rule out cannabis-induced psychosis Cannabis use disorder PLAN: -At this time patient DOES meet criteria for inpatient psychiatric admission due to patients mood instability, irrational thinking, impulsivity delusions, paranoia and non compliance with psychiatric treatment. -Would recommend the following medication changes/additions: increase Risperdal 1 mg daily + 2 mg qhs for psychosis/mood stabilization, Zyprexa 3 times a day when necessary for agitation, trazodone 50 mg daily at bedtime when necessary for insomnia. -Communicated plan to patient's nurse and to family members. son has volunteered to fill out another petition today. patient will need a clinical cert by primary doctor. -at this time psychiatry will continue to follow along as needed -1:1 sitter for safety -Please contact with any questions.
[2023-07-31] MEDS: traZODone HCL 50 MG TAB PO PRN (21:32)
[2023-07-31] MEDS: risperiDONE 2 MG TAB PO SCH (21:33)
[2023-08-01] MEDS: risperiDONE 1 MG TAB PO SCH (08:36)
[2023-08-01 18:54] VITALS: BP 137/86; PULSE 95; RESP 20; TEMP 98.2
[2023-08-01] MEDS: risperiDONE 2 MG TAB PO SCH (20:10)
[2023-08-01] MEDS: traZODone HCL 50 MG TAB PO PRN (21:18)
--- NOTE | 2023-08-01 22:48 | P.DS ---
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 Since condition condition worsen with agitation and irritability and insomnia delusional and paranoid tendencies as discussion with family including her and her daughter is recommended that patient have inpatient psychiatric evaluation and continued care. Patient was refusing this initially and we had prepared to petition patient for further treatment however at the end she did say that she needed help and that she was willing to go Plan - Discharge Summary New Discharge Prescriptions: No Action Sulfamethox-Tmp 800-160Mg [Bactrim DS 800-160 mg] 1 tab PO Q12HR LORazepam [Ativan] 0.5 mg PO BID PRN PRN Reason: Anxiety Discharge Medication List LORazepam [Ativan] 0.5 mg PO BID PRN 07/28/23 [History] Sulfamethox-Tmp 800-160Mg [Bactrim DS 800-160 mg] 1 tab PO Q12HR 07/28/23 [History] Patient Instructions/Handouts: Risperidone (By mouth) Activity/Diet/Wound Care/Special Instructions: information on Risperidone given to family Discharge Disposition: TRANSFER TO PSYCH HOSP/UNIT
--- NOTE | 2023-08-01 22:51 | P.PN ---
Subjective Progress Note Date: 07/31/23 patient feeling a little bit better today however she's had some peculiar behaviors and some pressured speech and some periods of confusion. She did take Seroquel 2 doses and states she slept better but she is still not herself she does on occasion answer questions appropriately however for the most part she is alert and orientated 3. Neurology is cleared her of any neurological disorders psychiatry is still adjusting her medications and states that she's not quite a inpatient psychiatric candidate unless her symptoms worsen which they have almost overnight now she is having problems with aggressive behavior agitation and irritability insomnia and delusional behavior she still denies any cough congestion shortness of breath fever dysuria or incontinence patient was examined today with and daughter at the bedside. Objective - Vital Signs Vital signs: Vital Signs Temp 98.2 F 07/31/23 19:34 Pulse 95 07/31/23 19:34 Resp 20 07/31/23 20:00 BP 136/85 07/31/23 19:34 Pulse Ox 96 07/31/23 19:34 FiO2 Intake & Output 07/31/23 07/31/23 08/01/23 06:59 18:59 06:59 Other: # Voids 3 2 - Exam GENERAL: This is a 48-year-old in no mild distress at the time of examination. Pleasant and cooperative. HEENT: Head is atraumatic, normocephalic. Pupils are equal, round, and reactive to light. Sclerae anicteric. Conjunctivae are clear. Mucus membranes of the mouth are moist. Neck is supple. RESPIRATORY: Clear to auscultation. No wheezes, rales, or rhonchi. No use of accessory muscles. No chest wall tenderness is noted on palpation or with deep breathing. CARDIOVASCULAR: Regular rate and rhythm. S1 and S2 noted. No systolic or diastolic murmur auscultated. No JVD noted. No S3 or S4 noted. GASTROINTESTINAL: No distention noted. Abdomen soft and round. Normal active bowel sounds auscultated x 4 quadrants. No pain or tenderness noted upon palpation. INTEGUMENTARY: No cyanosis. No jaundice. No rashes noted. No cellulitis noted. EXTREMITIES: 2+ peripheral pulses. No evidence of peripheral edema. No calf tenderness noted. NEUROLOGIC: Cranial nerves II-XII intact. PSYCHIATRIC: Awake, alert, and oriented X 3. currently had episodes of confusion and delirium earlier reported - Labs CBC & Chem 7: 07/28/23 11:57 07/28/23 11:57 Labs: Microbiology - Last 24 Hours (Table) 07/29/23 16:45 Urine Culture - Final Urine,Voided Assessment and Plan (1) 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 Status: Acute Code(s): F12.151 - CANNABIS ABUSE WITH PSYCHOTIC DISORDER WITH HALLUCINATIONS SNOMED Code(s): 93937342 (2) Acute psychosis Status: Acute Code(s): F23 - BRIEF PSYCHOTIC DISORDER SNOMED Code(s): 6597 3321444331 (3) Altered mental status Status: Acute Code(s): R41.82 - ALTERED MENTAL STATUS, UNSPECIFIED SNOMED Code(s): 197593611 (4) Tremors of nervous system Status: Acute Code(s): R25.1 - TREMOR, UNSPECIFIED SNOMED Code(s): 29588870 Plan: patient has been cleared by neurology will continue to work with psychiatry and adjust her medications follow her overnight if patient is stable. psychiatry to reevaluate patient today because of further problems with combativeness she has asked me to leave the room and states that our conversation is done I believe it would be in her best interest to be petitioned to stay in the hospital for further treatment because she is been noncompliant with treatment today
== END 2023-08-01 22:15 ==
LOC: EC 10:44 → 6NMEDSUR 15:59 → 5NMEDONC 07-29 06:30
PROVIDERS: ADMIT Family Medicine; ATTEND Family Medicine
DX: F12.151 Cannabis abuse with psychotic disorder with hallucinations (principal); R25.1 Tremor, unspecified; E05.20 Thyrotoxicosis with toxic multinodular goiter without thyrotoxic crisis or storm; F32.A Depression, unspecified; F41.9 Anxiety disorder, unspecified; E66.3 Overweight; Z68.43 Body mass index [BMI] 50.0-59.9, adult; Z91.148 Patient's other noncompliance with medication regimen for other reason; G47.00 Insomnia, unspecified; Z88.0 Allergy status to penicillin; Z88.1 Allergy status to other antibiotic agents; Z91.041 Radiographic dye allergy status; Z90.49 Acquired absence of other specified parts of digestive tract; Z87.440 Personal history of urinary (tract) infections; Z98.890 Other specified postprocedural states; Z81.8 Family history of other mental and behavioral disorders
CPT/HCPCS: 82075; 96374; 96375; 99285; 36415; 95816; 93005; 92523; 80053; 84443; 82607; 82140; 82746; 84484; 85025; 85610; 85730; 81001 ×2; 80306; 80320; 87086; 70496; 70498; G0378 ×6; J1200; J2930; J3490; Q9967

== ENCOUNTER 2023-08-01 20:53 | Inpatient (IN) | payer BC ==
[2023-08-01] MEDS ORDERED: ACETAMINOPHEN TAB 325 MG TAB PO PRN (20:56)
[2023-08-01] MEDS ORDERED: IBUPROFEN 600 MG TAB PO PRN (20:56)
[2023-08-01] MEDS ORDERED: MAGNESIUM HYDROXIDE 2,400 MG/30 ML CUP PO PRN (20:56)
[2023-08-01] MEDS ORDERED: MAG HYDROX/AL HYDROX/SIMETH 30 ML CUP PO PRN (20:56)
[2023-08-01] MEDS ORDERED: OLANZapine 5 MG TAB PO PRN (20:59)
[2023-08-01] MEDS ORDERED: OLANZapine 10 MG VIAL IM PRN (20:59)
[2023-08-01] MEDS ORDERED: traZODone HCL 50 MG TAB PO PRN (21:01)
[2023-08-01] MEDS ORDERED: risperiDONE 2 MG TAB PO SCH (21:30)
--- NOTE | 2023-08-01 22:54 | P.HPIM ---
History of Present Illness H&P Date: 08/01/23 please use patient's history and physical from this week just transcribed as well as discharge summary patient was transferred from medical floor to psychiatric facility for delusional behavior and altered mental status Past Medical History Additional Past Medical History / Comment(s): multinodular goiter History of Any Multi-Drug Resistant Organisms: None Reported Past Surgical History: Cholecystectomy Additional Past Surgical History / Comment(s): D&C 2014 Past Psychological History: No Psychological Hx Reported Smoking Status: Never smoker Past Alcohol Use History: Rare Past Drug Use History: Marijuana Medications and Allergies Home Medications Medication Instructions Recorded Confirmed Type LORazepam [Ativan] 0.5 mg PO BID PRN 07/28/23 08/01/23 History Sulfamethox-Tmp 800-160Mg [Bactrim 1 tab PO Q12HR 07/28/23 08/01/23 History DS 800-160 mg] Allergies Allergy/AdvReac Type Severity Reaction Status Date / Time azithromycin Allergy Unknown Verified 08/01/23 21:35 Iodinated Contrast Media Allergy Unknown Verified 08/01/23 21:35 Penicillins Allergy Unknown Verified 08/01/23 21:35 Physical Exam Osteopathic Statement: *. No significant issues noted on an osteopathic structural exam other than those noted in the History and Physical/Consult. Vitals: Intake and Output 08/01/23 08/01/23 08/01/23 06:59 14:59 22:59 Other: Weight 133.81 kg
[2023-08-02 01:57] VITALS: BP 141/64; PULSE 106; RESP 16; TEMP 97.8
[2023-08-02] MEDS ORDERED: risperiDONE 1 MG TAB PO SCH (09:00)
[2023-08-02] MEDS ORDERED: NICOTINE 14MG/24HR PATCH TRANSDERM SCH (09:00)
--- NOTE | 2023-08-02 12:01 | P.HP ---
Psychiatric H&P - . H&P Date: 08/02/23 History & Physical: Allergies Allergy/AdvReac Type Severity Reaction Status Date / Time azithromycin Allergy Unknown Verified 08/01/23 21:35 Iodinated Contrast Media Allergy Unknown Verified 08/01/23 21:35 latex Allergy Rash/Hives Verified 08/02/23 04:35 Penicillins Allergy Unknown Verified 08/01/23 21:35 Vital Signs Temp 97.8 F 08/01/23 20:54 Pulse 106 H 08/01/23 20:54 Resp 16 08/01/23 20:54 BP 141/64 08/01/23 20:54 Pulse Ox 97 08/01/23 20:54 FiO2 Intake & Output 08/01/23 08/02/23 08/02/23 18:59 06:59 18:59 Weight 133.81 kg 08/02/23 11:50 This is a difficult case to evaluate I interviewed the patient reviewed the brief note from admission and the evaluations by Dr. Valderrama. He saw her on the did not feel she met criteria then saw her on the and thought she did meet criteria the patient does not want to be on a psychiatric unit. On the the patient denied any auditory or visual hallucinations any suicidal or homicidal intents or plans she did get somewhat agitated about wanting to be discharged and not feeling we had the right to hold her against her will. She was noted to be rambling demanding paranoid in impulsive and admitted to her mood being up and down. She says that the reason why she was having difficulty is because she was overly stressed that they went to her brother's wedding and there are other things that had been stressing her and that she can handle one or 2 things but is just too much and that's why she got too anxious and worked up. The patient says been coming in and out of the emergency room in the past week worrying about different medical issues thinking that she might be dying that other people were dying as well also that she had not been sleeping well. Past psychiatric history the patient says the only thing she ever has been prescribed with Xanax on 2 occasions in her life and she did not take it for any length of time did not like how it made her feel that she has not been treated psychiatrically other than that. Social history: The patient is the second of 5 children born to her parents who stayed together until her mother at 70 of complications of diabetes and other illnesses her father is still alive. She says only thing that runs in her family tree is a tremor and she said recently her own tremor got so bad because she was exhausted that her had to hold her head and she thought that she might break her neck from shaking. 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 She is on low-dose risperidone which can work rapidly as a mood stabilizer. Mental status exam she does seem a little high strung but apart from that she knew this was 08/02/2023 she could remember 3 of 3 objects after 3 minutes she can name the last 5 presidents she could name all of the [facility] [employer] and had an excellent idea of where they were she could spell world backward and subtract 7 from 93 when asked how cats and snakes are like her abstract thinking was fine she said that they stock there pray and use sharp things to bite them that this may kids tease and cats their clots and that snakes look a little bit like detail of her. When asked to abstract the proverb the grass looks screen and outside offense she said, "be happy with where you are". She denies any hallucinations or delusions are feeling paranoid about anything denies that she feels she is about to she said when she was shaking she did worry about maybe breaking her neck. She did not appear to be responding to voices. She says that she is willing to get help and take medications but does not feel she needs to be in the hospital does not want to be here. Assessment/plan: I do not see any evidence of psychiatric issues that would in danger at this point I do need to contact her to get outside input several: Terminal give a little more time to get a call back. It is possible that the medication she is on are already helping. I think that being in a supportive environment and taking these medicines may already have brought her out of whatever was going on. Diagnosis brief reactive psychosis apparently in remission. Medications: She is on risperidone and that can work rapidly.
[2023-08-02 13:32] VITALS: BMI 50.6
--- NOTE | 2023-08-02 13:44 | P.DS ---
Providers Date of admission: 08/01/23 20:53 Expected date of discharge: 08/02/23 Attending physician: Harlan Arias MD Consults: 08/01/23 20:56 Consult Physician Routine Consulting Provider: Jose Hernandez Consult Reason/Comments: medical H&P Do you want consulting provider notified?: Yes, Notify in am Primary care physician: Jose Hernandez Plan - Discharge Summary Discharge Rx Participant: Yes New Discharge Prescriptions: No Action Sulfamethox-Tmp 800-160Mg [Bactrim DS 800-160 mg] 1 tab PO Q12HR LORazepam [Ativan] 0.5 mg PO BID PRN PRN Reason: Anxiety Discharge Medication List LORazepam [Ativan] 0.5 mg PO BID PRN 07/28/23 [History] Sulfamethox-Tmp 800-160Mg [Bactrim DS 800-160 mg] 1 tab PO Q12HR 07/28/23 [History] Activity/Diet/Wound Care/Special Instructions: Avoid the use of street drugs and alcohol. Take all medications as prescribed. When you are in need of refills on your medications, please contact your medical provider and/or outpatient psychiatrist/provider to have this done. Please go to your scheduled outpatient appointment for aftercare treatment. If symptoms return or become worse, call the crisis line at and/or go to the nearest emergency room for evaluation. National Suicide Hotline 499.
--- NOTE | 2023-08-02 13:54 | P.PN ---
Subjective Progress Note Date: 08/02/23 Principal diagnosis: Psychosis NOS Probable bipolar 2 quentin I was unable to figure out how to do a discharge note the computer would not allow me to. I talked with Dr. Hanny dillon and I talked with the at length. I also interviewed the patient again Subjective the patient is very clear that she wants to be discharged home to her environment there and calm back down. She was able to sleep last night she has not been threatening or danger to anyone here. She denies any desire to hurt anyone else or to hurt herself she denies any voices and does not seem to be responding to any she denies any hallucinations or delusions. Her reported that she had had some believes that people might be putting things in her IV she does not have that feeling. She promises to take the medications at home. Objective the patient does not show any psychotic symptoms she is intelligent alert oriented abstract in her thinking what comes across as possibly quentin he has some pressure not wanting to let other people finished her sentence writing things down wanting to know what my first name was pointing out that the [place] However there is no threatening component to it. Assessment these symptoms could be from an atypical quentin is unusual to hit at this age. She has been under stress to on the could have triggered something. She promises to continue to take her risperidone and I think I will give it to her each evening so it's easier to get if she takes it I think she will continue to calm down she will have an appointment with psychiatrist and they will have to work out long-term O would be the best medication. I did tell her that I thought her symptoms look like a manic episode. However there is no basis to fill out a second certification and I talked to her he can call me if she starts having trouble and we will get her right back in the hospital. She is going to call on Friday with the help of her social friend and find a psychiatrist she is going to take the risperidone each day. We will send her home with prescription Objective - Vital Signs Vital signs: Vital Signs Temp 97.8 F 08/01/23 20:54 Pulse 106 H 08/01/23 20:54 Resp 16 08/01/23 20:54 BP 141/64 08/01/23 20:54 Pulse Ox 97 08/01/23 20:54 FiO2 Intake & Output 08/01/23 08/02/23 08/02/23 18:59 06:59 18:59 Weight 133.81 kg 133.81 kg
== END 2023-08-02 14:55 | disposition home or self-care (01) | DRG 885 ==
LOC: 3MHU 20:53
PROVIDERS: ADMIT Psychiatry & Neurology Psychiatry; ATTEND Psychiatry & Neurology Psychiatry
DX: F23 Brief psychotic disorder (principal); F31.81 Bipolar II disorder; Z63.4 Disappearance and death of family member; Z79.899 Other long term (current) drug therapy; R45.1 Restlessness and agitation; Z88.0 Allergy status to penicillin; Z88.1 Allergy status to other antibiotic agents; Z91.041 Radiographic dye allergy status; Z91.040 Latex allergy status

== ENCOUNTER 2023-11-20 12:24 | Day surgery (SDC) | payer BC ==
[2023-11-20] MEDS ORDERED: ALPRAZolam 0.5 MG TAB PO STA (13:22)
[2023-11-20 13:49] VITALS: TEMP 98.2
[2023-11-20 14:13] VITALS: PULSE 75
--- NOTE | 2023-11-20 14:42 | US ---
EXAMINATION TYPE: US FNA first lesion DATE OF EXAM: 11/20/2023 2:38 PM CLINICAL INDICATION:Female, 48 years old with history of E04.1 nontoxic thyroid nodule; , thyroid nod ule. COMPARISON: 07/28/2023 ATTENDING: Dr. Shahzad Lemon PROCEDURE: Informed consent was obtained. The risks and benefits of the procedure were discussed with the patien t. The site was marked. Timeout procedure was performed Ultrasound imaging of the thyroid demonstrates left inferior thyroid nodule The patient was prepped, draped in the usual sterile fashion, and locally anesthetized with 1% lidoca ine. Five fine needle aspiration were then performed with a 25 gauge needle. Samples were [facility] for further analysis. Patient tolerated the procedure without incident and wa s sent home in stable condition. IMPRESSION: Successful ultrasound guided fine needle aspiration.
[2023-11-20 15:00] VITALS: BP 148/78; RESP 16
== END 2023-11-20 14:35 | disposition home or self-care (01) ==
LOC: RADPROMAIN 12:24
PROVIDERS: ATTEND Internal Medicine Endocrinology, Diabetes & Metabolism
DX: E04.1 Nontoxic single thyroid nodule (principal)
CPT/HCPCS: 10005; 88173; 88305

== ENCOUNTER → 2024-02-04 | Outpatient (CLI) | payer BC ==
[2024-02-04 13:16] LABS: T4, Free (Free Thyroxine) 1.52 ng/dL (0.80-1.80)
== END | disposition home or self-care (01) ==
LOC: LABWHC1 07:53
PROVIDERS: ATTEND Internal Medicine Endocrinology, Diabetes & Metabolism
DX: E04.1 Nontoxic single thyroid nodule (principal)
CPT/HCPCS: 36415; 84439; 84443

== ENCOUNTER → 2024-02-09 | Outpatient (CLI) | payer BC ==
[2024-02-09 18:23] LABS: Basophils # (A) 0.05 X 10*3/uL (0.00-0.10); Basophils % (A) 0.8 %; Eosinophils # (A) 0.22 X 10*3/uL (0.04-0.35); Eosinophils % (A) 3.6 %; HCT 42.1 % (37.2-46.3); HGB 13.3 g/dL (12.0-15.0); Lymphocytes % (A) 33.2 %; MCH 29.1 pg (27.0-32.0); MCHC 31.6 g/dL (32.0-37.0); MCV 92.1 FL (80.0-97.0); Monocytes # (A) 0.48 X 10*3/uL (0.20-1.00); NRBC Per 100 WBC 0 X 10*3/uL (0.00-0.01); Neutrophils # (A) 3.25 X 10*3/uL (1.80-7.70); Neutrophils % (A) 53.9 %; Platelet Count 276 X 10*3/uL (140-440); RBC 4.57 X 10*6/uL (4.10-5.20); WBC 6.03 X 10*3/uL (4.50-10.00)
[2024-02-09 18:46] LABS: ALT 25 U/L (8-44); AST 17 U/L (13-35); Alkaline Phosphatase 63 U/L (41-126); BUN/Creat Ratio 17.43 Ratio (12.00-20.00); Blood Urea Nitrogen 12.2 mg/dL (9.0-27.0); Calcium 9.1 mg/dL (8.7-10.3); Carbon Dioxide 24.4 mmol/L (21.6-31.8); Chloride 107 mmol/L (96-109); Chol/HDL Ratio 3.88 Ratio; Globulin 2.5 g/dL (1.6-3.3); Glucose 104 mg/dL (70-110); LDL Cholesterol,Calculated 134.4 mg/dL (0.0-131.0); Potassium 4.5 mmol/L (3.5-5.5); Sodium 140 mmol/L (135-145); Total Bilirubin 0.5 mg/dL (0.3-1.2); Total Protein 6.5 g/dL (6.2-8.2); VLDL Calculation 14.82 mg/dL (5.00-40.00)
[2024-02-09 18:47] LABS: Homocysteine 9.23 UMOL/L (4.00-14.00)
[2024-02-09 19:06] LABS: % Iron Saturation 25.71 (12.00-45.00); C Reactive Protein, High Sens 18.2 mg/L (0.000-3.000)
[2024-02-09 19:47] LABS: Insulin Level 9.6 mIU/mL (3.0-25.0)
[2024-02-09 19:54] LABS: Estradiol 28.8 pg/mL
[2024-02-09 20:20] LABS: Reticulocyte % 2.14 % (0.10-1.80)
[2024-02-09 20:22] LABS: Progesterone 0.3 ng/mL
[2024-02-09 20:25] LABS: Thyroid Peroxidase Antibodies 15.9 U/mL (0.0-33.0)
== END | disposition home or self-care (01) ==
LOC: LABWHC1 08:07
PROVIDERS: ATTEND Family Medicine
DX: E66.9 Obesity, unspecified (principal); E89.0 Postprocedural hypothyroidism; D84.9 Immunodeficiency, unspecified; E34.9 Endocrine disorder, unspecified; D50.9 Iron deficiency anemia, unspecified; E55.9 Vitamin D deficiency, unspecified; R94.5 Abnormal results of liver function studies
CPT/HCPCS: 36415; 80053; 80061; 82040; 82306; 82533; 82607; 82627; 82642; 82670; 82728; 82746; 83036; 83090; 83525; 83540; 83550; 84140; 84144; 84270; 84403; 84432; 84436; 84442; 84480; 84481; 84482; 85025; 85045; 86141; 86376

== ENCOUNTER → 2024-02-20 | Outpatient (CLI) | payer BC ==
--- NOTE | 2024-02-20 15:09 | CA ---
Exercise Stress Test Report Name: Shreya Richard Exam Date: 02/20/2024 08:56 Exam Location: [place] Stress Ht (in): 64 Wt (lb): 269 BSA: 2.22 Ordering Phys: Jose Garza DO Referring Phys: JOSE GARZA Technologist: Jamel Pack Age: 48 Gender: F : 1975 Procedure CPT: Indications: E78.5 Hyperlipidemia, R65.10 NON-INFECTIOUS ORIGIN ICD-10 Codes: Patient History: Hyperlipidemia Medications: Meds past 24 hrs: Pretest Chest Pain: STRESS TEST Wayne Protocol Exercise Duration (min:sec): 06:[address] Depressions (mm): Angina Score: Pablo Score: Resting HR (bpm): 77 Peak HR (bpm): 159 Resting BP (mmHg): 144 / 88 Peak BP (mmHg): 210 / 96 MPHR: 170 Target HR: 145 % MPHR: 94 METS: 7.4 Total Dose: Peak Dose: Atropine: Double Product: 00750 BP Response: Stress Termination: Reached target heart rate Stress Symptoms: No chest pain or symptoms Stress Summary: ECG ANALYSIS Resting ECG: Stress ECG: CONCLUSIONS Patient underwent exercise stress EKG with a Wayne protocol treadmill stress test. Patient exercised into Stage 2 for a total of 6 minutes and 10 seconds reaching a total of 7.4 METS. Patient's maximum heart rate was 159 which represented 93% age- predicted maximum heart rate. Stress EKG findings: At baseline patient's EKG showed normal sinus rhythm, normal axis, no significant ST or T wave abnormalities. At peak exercise, EKG showed no significant change from baseline. Conclusions: 1. Normal EKG response to exercise without evidence of inducible ischemia. 2. Fair exercise capacity. Dr. Mo Horvath DO (Electronically Signed) Final Date: 20 February 2024 15:08
== END | disposition home or self-care (01) ==
LOC: RADNMMAIN 08:33
PROVIDERS: ATTEND Family Medicine
DX: E78.5 Hyperlipidemia, unspecified (principal); R65.10 Systemic inflammatory response syndrome (SIRS) of non-infectious origin without acute organ dysfunction
CPT/HCPCS: 93017